=== PATIENT | female | born 1985 | race Caucasian/White ===

== ENCOUNTER 2017-09-11 19:54 | Emergency (ER) | payer MEDICAID ==
[~2017-09-11] VITALS: Ht 162.6 cm; Wt 83.9 kg
[2017-09-11 19:59] VITALS: BP 112/65
--- NOTE | 2017-09-11 20:03 | NUR ---
TO LOBBY, EDITH HARPER,A/W BED, MEGHNA NOTED
--- NOTE | 2017-09-11 21:50 | NUR ---
PATIENT LEFT WITHOUT BEING SEEN BY DR. Han. NO FURTHER CARE PROVIDED FOR PATIENT.
== END 2017-09-11 21:50 | disposition left against medical advice (07) ==
LOC: MED 19:54
DX: R11.10 Vomiting, unspecified (principal); R50.9 Fever, unspecified; R19.7 Diarrhea, unspecified; Z53.21 Procedure and treatment not carried out due to patient leaving prior to being seen by health care provider